=== PATIENT | male | born 1975 ===

== ENCOUNTER 2016-12-21 16:21 | Emergency (ER) | payer OTHER ==
[2016-12-21 16:47] VITALS: BP 140/96; PULSE 89; RESP 20; TEMP 98.6; O2SAT 96
[2016-12-21] MEDS ORDERED: DiphenhydrAMINE 50 mg/ml Inj IVP STA (16:51)
[2016-12-21] MEDS ORDERED: methylPREDNISolone 125 MG in Sodium Chloride 0.9% 50 ML IV STA (16:51)
[2016-12-21] MEDS ORDERED: Sodium Chloride 0.9% 1,000 ML IV STA (16:52)
--- NOTE | 2016-12-21 17:01 | ED PDOC ---
HPI: Allergic Reaction Time Seen by Provider: 12/21/16 16:45 Chief Complaint (Nursing): Eye Problem History Per: Patient History/Exam Limitations: no limitations Onset/Duration Of Symptoms: Hrs (this morning ) Possible Cause: Unknown Home/EMS Treatment: None Additional Complaint(s): Ángel Weldon is a 41 year old male, with no previous medical history, who presents to the ED with complaints of eye swelling predominantly in the left eye which started when he woke up this morning and progressively worsened prompting ED visit. He reports associated mouth swelling but denies any throat swelling, shortness of breath, eye discharge. Patient denies eating any suspicious food or history of similar symptoms. PMD: none provided Past Medical History Reviewed: Historical Data, Nursing Documentation, Vital Signs Vital Signs: Last Vital Signs Temp 98.6 F 12/21/16 16:44 Pulse 89 12/21/16 16:44 Resp 20 12/21/16 16:44 BP 140/96 H 12/21/16 16:44 Pulse Ox 96 12/21/16 16:44 - Medical History PMH: No Chronic Diseases - Surgical History Surgical History: No Surg Hx - Family History Family History: States: Unknown Family Hx - Home Medications Home Medications: Ambulatory Orders Medication Instructions Recorded DiphenhydrAMINE [Benadryl] 50 mg PO Q6 PRN #24 cap 12/21/16 Epinephrine [Epipen] 0.3 mg IJ ONCE PRN #2 auto.injct 12/21/16 Famotidine [Pepcid] 20 mg PO BID #10 tab 12/21/16 Prednisone [Deltasone] 3 tab PO DAILY #12 tablet 12/21/16 - Allergies Allergies/Adverse Reactions: Allergies Allergy/AdvReac Type Severity Reaction Status Date / Time No Known Allergies Allergy Verified 12/21/16 16:44 Review of Systems ROS Statement: Except As Marked, All Systems Reviewed And Found Negative Eyes: Positive for: Eyelid Inflammation. Negative for: Vision Change ENT: Positive for: Mouth Swelling. Negative for: Throat Pain, Throat Swelling Cardiovascular: Negative for: Chest Pain Respiratory: Negative for: Shortness of Breath Physical Exam - Reviewed Nursing Documentation Reviewed: Yes Vital Signs Reviewed: Yes - Physical Exam Appears: Positive for: Well, Non-toxic, No Acute Distress Head Exam: Positive for: ATRAUMATIC, NORMAL INSPECTION, NORMOCEPHALIC Skin: Positive for: Warm, Dry. Negative for: Normal Color (flushed facial skin but no rashed noted anywhere else on the body ), Rash Eye Exam: Positive for: EOMI, PERRL, Periorbital swelling (bilaterally ) ENT: Positive for: Other (upper lip swelling ). Negative for: Pharyngeal Erythema, Tonsillar Exudate, Tonsillar Swelling Cardiovascular/Chest: Positive for: Regular Rate, Rhythm Respiratory: Positive for: Normal Breath Sounds. Negative for: Crackles, Rales , Rhonchi, Wheezing, Respiratory Distress Extremity: Positive for: Normal ROM Neurologic/Psych: Positive for: Alert, Oriented - ECG O2 Sat by Pulse Oximetry: 96 (RA) Pulse Ox Interpretation: Normal - Progress ED Course And Treament: Patient re-examined. Symptoms improved. Swelling in lip and eyes improved. d/w him possible allergic reaction to food. Given rx for prednison/benadryl/pepcid and explained use of epipen in time of emergency. Disposition - Clinical Impression Clinical Impression: Allergic reaction - Patient ED Disposition Is Patient to be Admitted: No - Disposition Referrals: [facility] [Outside] Disposition: Routine/Home Disposition Time: 18:39 Condition: FAIR Prescriptions: DiphenhydrAMINE [Benadryl] 50 mg PO Q6 PRN #24 cap PRN Reason: Itching / Pruritus Epinephrine [Epipen] 0.3 mg IJ ONCE PRN #2 auto.injct PRN Reason: Anaphylaxis Famotidine [Pepcid] 20 mg PO BID #10 tab Prednisone [Deltasone] 3 tab PO DAILY #12 tablet Instructions: General Allergic Reaction (ED) Forms: [facility] ED School/Work Excuse Print Language: SERBIAN Medical Decision Making Medical Decision Making: Initial Impression: Allergic Reaction Initial Plan: * solu-medrol 50 ml IV * Benadryl 50 mg IV * IV NS 1,000 ml at 500 ml/hr * pepcid 20 mg IV * reevaluation Scribe Attestation: Documented by Laura Matta, acting as a scribe for Rach Rouse PA-C. Provider Scribe Attestation: All medical record entries made by the Scribe were at my direction and personally dictated by me. I have reviewed the chart and agree that the record accurately reflects my personal performance of the history, physical exam, medical decision making, and the department course for this patient. I have also personally directed, reviewed, and agree with the discharge instructions and disposition.
== END 2016-12-21 19:49 | disposition home or self-care (01) ==
LOC: H.ER 16:21
DX: T78.40XA Allergy, unspecified, initial encounter (principal)

== ENCOUNTER 2018-05-19 14:43 | Emergency (ER) | payer SELFPAY ==
[2018-05-19 15:04] VITALS: PULSE 73; RESP 18; O2SAT 97
--- NOTE | 2018-05-19 15:25 | ED PDOC ---
Upper Extremity Pain/Injury Time Seen by Provider: 05/19/18 15:05 Chief Complaint (Nursing): Upper Extremity Problem/Injury Chief Complaint (Provider): Left Shoulder Pain History Per: Patient, Sample Builder ([id number]) History/Exam Limitations: no limitations Onset/Duration Of Symptoms: Days (x3) Current Symptoms Are (Timing): Still Present Additional Complaint(s): 43 year old male presents to the ED for evaluation of 8/10 left shoulder pain s/p falling in his tub three days ago. Reports taking Ibuprofen, last dose last night, and using icy hot patches with minimal relief. He also notes limitation in motion to the shoulder secondary to pain. Otherwise, denies previous hx of injury or surgery to affected shoulder. No other complaints at present. Left hand dominant PMD: none provided Past Medical History Reviewed: Historical Data, Nursing Documentation, Vital Signs Vital Signs: Last Vital Signs Temp 98.4 F 05/19/18 15:01 Pulse 73 05/19/18 15:01 Resp 18 05/19/18 15:01 BP 149/87 05/19/18 15:01 Pulse Ox 97 05/19/18 15:01 - Medical History PMH: No Chronic Diseases - Surgical History Surgical History: No Surg Hx - Family History Family History: States: Unknown Family Hx - Home Medications Home Medications: Ambulatory Orders Medication Instructions Recorded DiphenhydrAMINE [Benadryl] 50 mg PO Q6 PRN #24 cap 12/21/16 Epinephrine [Epipen] 0.3 mg IJ ONCE PRN #2 auto.injct 12/21/16 Famotidine [Pepcid] 20 mg PO BID #10 tab 12/21/16 RX: Prednisone [Deltasone] 3 tab PO DAILY #12 tablet 12/21/16 RX: Naproxen 500 mg PO BID PRN #20 tab 05/19/18 - Allergies Allergies/Adverse Reactions: Allergies Allergy/AdvReac Type Severity Reaction Status Date / Time No Known Allergies Allergy Verified 12/21/16 16:44 Review of Systems ROS Statement: Except As Marked, All Systems Reviewed And Found Negative Musculoskeletal: Positive for: Shoulder Pain (left) Physical Exam - Reviewed Nursing Documentation Reviewed: Yes Vital Signs Reviewed: Yes - Physical Exam Comments: GENERAL APPEARANCE: Patient is awake, alert, oriented x 3, in no acute distress. SKIN: Warm, dry; (-) cyanosis. NECK: Supple, FROM (-) tenderness ENT: Mucus membranes moist. Airway patent, (-) stridor. CHEST AND RESPIRATORY: (-) rales, (-) rhonchi, (-) wheezes; breath sounds equal bilaterally. Respirations even and nonlabored. HEART AND CARDIOVASCULAR: (-) irregularity LEFT UPPER EXTREMITY: (+) tenderness to anterior left shoulder and proximal humerus. Decreased abduction and extension of left shoulder otherwise ROM intact. (-) AC joint tenderness, (-) clavicular tenderness, (-) ecchymosis, (-) crepitus, (-) edema. Full ROM to elbow and wrist. Sensation intact throughout. Horse Race Timer strength equal. NEURO AND PSYCH: Mental status as above. Gait: steady. Speech: clear. (-) facial asymmetry - ECG O2 Sat by Pulse Oximetry: 97 (RA) Pulse Ox Interpretation: Normal Medical Decision Making Medical Decision Making: Initial Impression: acute left shoulder pain s/p fall, r/o fx Time: 1525 Initial Plan: --Toradol 30mg IM --Left shoulder XR --Reevaluation 5 XR reviewed, radiology report follows: Date of service: 05/19/2018 PROCEDURE: Radiographs of the left shoulder HISTORY: s/p fall 4 days ago, r/o fracture COMPARISON: No prior. FINDINGS: BONES: Bone alignment and mineralization are normal. There is no acute displaced fracture or bone destruction. JOINTS: The glenohumeral and acromioclavicular joints are preserved. No significant degenerative osteoarthrosis. SOFT TISSUES: Normal. OTHER FINDINGS: None. IMPRESSION: No acute displaced fracture or dislocation. On re-evaluation, patient reports improvement of symptoms. On exam, patient remains AAOx3, in no acute distress. Lungs clear to auscultation, cardiac RRR, repeat neuro exam shows no focal findings. Vitals stable. Lab/Diagnostic results d/w the patient in great detail. Diagnosis of acute shoulder pain/sprain/contusion d/w the patient. Based on history, exam and diagnostic results, plan will be for outpatient follow up with ortho. Patient instructed to follow-up with pmd / referral provided / the clinic in 1- 2 days without fail. Advised to take medication as prescribed. Return to the emergency room at any time for any new or worsening symptoms. Patient states he fully agrees with and understands discharge instructions. States that he agrees with the plan and disposition. Verbalized and repeated discharge instructions and plan. I have given the patient opportunity to ask any additional questions. Scribe Attestation: Documented by Ana Mccoy, acting as a scribe for Sandrine Jacobsen PA-C. Provider Scribe Attestation: All medical record entries made by the Scribe were at my direction and personally dictated by me. I have reviewed the chart and agree that the record accurately reflects my personal performance of the history, physical exam, medical decision making, and the department course for this patient. I have also personally directed, reviewed, and agree with the discharge instructions and disposition. Disposition - Clinical Impression Clinical Impression: Shoulder pain, acute, Shoulder contusion, Shoulder sprain - Patient ED Disposition Is Patient to be Admitted: No Counseled Patient/Family Regarding: Studies Performed, Diagnosis, Need For Followup, Rx Given - Disposition Referrals: Kelvin Hernandez MD [Staff Provider] - [facility] [Outside] Disposition: Routine/Home Disposition Time: 16:30 Condition: STABLE Additional Instructions: La atencin mdica de emergencia que recibi hoy se dirigi a paige sntomas agudos. Si le recetaron algn medicamento, llnelo y tmelo segn las indicaciones. Los sntomas pueden tardar varios cristobal en resolverse. Regrese al Departamento de Emergencias si paige sntomas empeoran, no mejoran o si tiene otros problemas. Comunquese con evans mdico dentro de 2 cristobal para areli nueva evaluacin y ricardo un seguimiento o llame a luann de los mdicos / clnicas a los que conley sido referido y que figuran en el formulario de Informacin de visita al paciente que se incluye en evans paquete de vickie. Lleve con usted a evans consulta de seguimiento toda la documentacin que recibi del vickie junto con los medicamentos que est tomando. Nuestro tratamiento no puede reemplazar la atencin mdica continua por parte de un proveedor de atencin primaria (PCP) fuera del departamento de emergencias. Prescriptions: RX: Naproxen 500 mg PO BID PRN #20 tab PRN Reason: Pain, Moderate (4-7) Instructions: Shoulder Sprain, Contusion (DC), Shoulder Pain (DC) Forms: [employer] (Nepalese) Print Language: TELUGU - POA Present On Arrival: Falls Or Trauma
--- NOTE | 2018-05-19 16:11 | RAD ---
Date of service: 05/19/2018 PROCEDURE: Radiographs of the left shoulder HISTORY: s/p fall 4 days ago, r/o fracture COMPARISON: No prior. FINDINGS: BONES: Bone alignment and mineralization are normal. There is no acute displaced fracture or bone destruction. JOINTS: The glenohumeral and acromioclavicular joints are preserved. No significant degenerative osteoarthrosis. SOFT TISSUES: Normal. OTHER FINDINGS: None. IMPRESSION: No acute displaced fracture or dislocation.
[2018-05-19 16:41] VITALS: BP 137/80; TEMP 98.5
== END 2018-05-19 16:30 | disposition home or self-care (01) ==
LOC: H.ER 14:43 → SUPCPDRO 14:43 → H.ER 16:30
DX: S43.402A Unspecified sprain of left shoulder joint, initial encounter (principal); W19.XXXA Unspecified fall, initial encounter; Y92.002 Bathroom of unspecified non-institutional (private) residence as the place of occurrence of the external cause
CPT/HCPCS: 73030; 96372; 99283; J1885